=== PATIENT | male | born 2000 | race Caucasian/White ===

== ENCOUNTER 2022-01-24 11:23 | Inpatient (IN) | payer MEDICAID, SELFPAY ==
[2022-01-24 11:33] VITALS: BMI 25.0
[2022-01-24 13:48] VITALS: BP 111/74; PULSE 84; RESP 17; TEMP 36.6; O2SAT 98
[2022-01-24] MEDS: hyDROXYzine 25 mg Capsule 50 MG PO (20:19)
[2022-01-24] MEDS: trazodone 50 mg Tablet PO (21:47)
[2022-01-24 22:00] VITALS: BP 141/79; PULSE 89; RESP 20; TEMP 36.9; O2SAT 93
[2022-01-25 06:00] VITALS: BP 101/44; PULSE 43; RESP 19; TEMP 36.6; O2SAT 99
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
[2022-01-25 14:00] VITALS: BP 126/87; PULSE 78; RESP 18; TEMP 36.9; O2SAT 98
[2022-01-25] MEDS: trazodone 50 mg Tablet PO (21:09)
[2022-01-25] MEDS: hyDROXYzine 25 mg Capsule 50 MG PO (21:11)
[2022-01-25 21:38] VITALS: BP 130/68; PULSE 76; RESP 17; TEMP 37; O2SAT 98
[2022-01-26 06:00] VITALS: BP 110/50; PULSE 54; RESP 20; TEMP 36.5; O2SAT 99
[2022-01-26] MEDS: ARIPiprazole 10 mg Tablet 5 MG PO (13:03)
[2022-01-26 14:00] VITALS: BP 112/77; PULSE 68; RESP 18; TEMP 36.6; O2SAT 96
--- NOTE | 2022-01-26 16:52 | W.PM.NPUPNS ---
Subjective NPU Subjective: 21y.o. White male with Bipolar Disorder NOS who reports feeling calmer today on abilify 5mg with no side effects noted. Patient reports that he is hopeful about getting better but reports that he has had noviolent angry thoughts today and has been better at managing his ?ups and downs.? Patient reports no depressed mood today. Patient still report worry about having to care for his potential baby as he reports that his ex girlfriend was deemed to be unfit. Mental Status Exam MSE Comments: Marcos? presents as friendly, attentive, but tense. but looks unhappy. He exhibits speech that is normal in rate, volume, and articulation and is coherent and spontaneous. Language skills are intact. He appears downcast. Body posture and attitude convey an underlying depressed mood, but he reports that his mood is a little bit better. He denies having suicidal ideas.? His affect is constricted. Homicidal ideas or intentions are denied.? He was alert and oriented to person place and time, Vocabulary and fund of knowledge indicate cognitive functioning in the normal range. Insight into problems appears to be poor. Judgment appears fair. He is easily distracted.? No signs of withdrawal or intoxication are in evidence. No evidence of any abnormal involuntary motor movements or tics presented. Vitals/I&O/Wt Last Vital Signs Temp 97.9 F 01/26/22 20:22 Pulse 83 01/26/22 20:22 Resp 16 01/26/22 20:22 BP 130/89 01/26/22 20:22 Pulse Ox 98 01/26/22 20:22 A&P Assessment and plan (1) Bipolar disorder, unspecified: Status: Acute (2) Methamphetamine use disorder, severe: Status: Acute Plan Diagnoses:? The following Diagnoses are based on currently available information and may change as additional information becomes available. Bipolar Disorder NEC, 296.89 (Partial Remission) Stimulant Use Disorder, Moderate, Amphetamine type substance, 304.40, F15.20 (ICD-9) (Active) Evaluate for Autistic Spectrum Disorder:? Instructions / Recommendations / Plan: 21 year old who presents voluntarily with homicidal threats, irritability with an extended history of symptoms suggestive of bipolar disorder.? We will attempt to gather further information and previous records.? 1.? Continue current medication.? Started Abilify 5 mg p.o. every morning 2.? Continue every 15 minute checks for safety. 3.? Encourage individual, group and milieu therapies. 4.? Encourage sober living treatment after discharge at the highest level of care to which he is willing to commit. Involuntary Hold Information 96 Hour Hold: 96 Hour Involuntary Admission: No Attestations NPU Medical Necessity Statement*: Inpatient hospitalization is medically necessary and the clinically appropriate intervention at this time. We will monitor medication to make changes as indicated. Likely length of stay 2-4 days. Coding Level of Care Code Acute Workforce Investment Act Career Manager for [facility] Diagnoses Bipolar disorder, unspecified F31.9 Methamphetamine use disorder, severe F15.20
[2022-01-26 20:22] VITALS: BP 130/89; PULSE 83; RESP 16; TEMP 36.6; O2SAT 98
[2022-01-26] MEDS: hyDROXYzine 25 mg Capsule 50 MG PO (22:42)
[2022-01-26] MEDS: mupirocin oint 22 gm 1 APPLIC TOPICAL (22:43)
[2022-01-27 06:00] VITALS: BP 106/62; PULSE 67; RESP 16; TEMP 37; O2SAT 96
--- NOTE | 2022-01-27 08:27 | PC.NURSE ---
IN ROOM RESTING. COOPERATIVE WITH ASSESSMENT. DENIES SI/HI AND AVH AT THIS TIME. DENIES PAIN. FLAT AFFECT IS NOTED. PT WITHDRAWN AND NO INTERACTIVE WITH ASSESSMENT. STATES, I JUST WANT TO SLEEP. ONCE ASSESSMENT COMPLETED PT WENT BACK TO RESTING WITH EYES CLOSED. SUPPORT VOICED.
[2022-01-27] MEDS: ARIPiprazole 10 mg Tablet 5 MG PO (09:29)
[2022-01-27] MEDS: mupirocin oint 22 gm 1 APPLIC TOPICAL ×2 (09:30→20:50)
[2022-01-27 14:00] VITALS: BP 150/76; PULSE 71; RESP 16; TEMP 36.8; O2SAT 97
--- NOTE | 2022-01-27 17:13 | P.NPUPN_ITS ---
Subjective NPU Subjective: Patient presents today reporting that he is feeling fine on the medication. There are some concern regarding whether or not he was having some somnolence from the medication. We had discussed the possibility of increasing it to 10 mg, the Abilify, but agreed to leave it at 5 mg and monitor a little more. He reports he is eating and sleeping okay he denied any additional challenges. Mental Status Exam MSE Comments: Marcos? presents as friendly, attentive, but tense. but looks unhappy. He exhibits speech that is normal in rate, volume, and articulation and is coherent and spontaneous. Language skills are intact. He appears downcast. Body posture and attitude convey an underlying depressed mood, but he reports that his mood is a little better.? He denies having suicidal ideas.? His affect is constricted. Homicidal ideas or intentions are denied.? He was alert and oriented to person place and time, Vocabulary and fund of knowledge indicate cognitive functioning in the normal range. Insight into problems appears to be poor. Judgment appears fair. He is easily distracted.? No signs of withdrawal or intoxication are in evidence. No evidence of any abnormal involuntary motor movements or tics presented. Vitals/I&O/Wt Last Vital Signs Temp 98.2 F 01/27/22 14:00 Pulse 71 01/27/22 14:00 Resp 16 01/27/22 14:00 BP 150/76 01/27/22 14:00 Pulse Ox 97 01/27/22 14:00 A&P Assessment and plan (1) Bipolar disorder, unspecified: Status: Acute (2) Methamphetamine use disorder, severe: Status: Acute Plan Diagnoses:? The following Diagnoses are based on currently available information and may change as additional information becomes available. Bipolar Disorder NEC, 296.89 (Partial Remission) Stimulant Use Disorder, Moderate, Amphetamine type substance, 304.40, F15.20 (ICD-9) (Active) Evaluate for Autistic Spectrum Disorder:? Instructions / Recommendations / Plan: 21 year old who presents voluntarily with homicidal threats, irritability with an extended history of symptoms suggestive of bipolar disorder.? We will attempt to gather further information and previous records.? 1.? Continue current medication.? Started Abilify 5 mg p.o. every morning 2.? Continue every 15 minute checks for safety. 3.? Encourage individual, group and milieu therapies. 4.? Encourage sober living treatment after discharge at the highest level of care to which he is willing to commit. Involuntary Hold Information 96 Hour Hold: 96 Hour Involuntary Admission: No Attestations NPU Medical Necessity Statement*: Inpatient hospitalization is medically necessary and the clinically appropriate intervention at this time. We will monitor medication to make changes as indicated. Likely length of stay 2-4 days. Coding Level of Care Code Acute Metal Ceiling Hanger for [facility] Fwd Diagnoses Bipolar disorder, unspecified F31.9 Methamphetamine use disorder, severe F15.20
[2022-01-27 20:05] VITALS: BP 143/75; PULSE 65; RESP 18; TEMP 36.6; O2SAT 98
[2022-01-28 06:00] VITALS: BP 112/61; PULSE 76; RESP 18; TEMP 36.8; O2SAT 99
[2022-01-28] MEDS: ARIPiprazole 10 mg Tablet 5 MG PO (08:50)
[2022-01-28] MEDS: mupirocin oint 22 gm 1 APPLIC TOPICAL ×2 (09:39→22:29)
[2022-01-28] MEDS: acetaminophen 325 mg Tablet 650 MG PO (11:38)
[2022-01-28 14:00] VITALS: BP 112/61; PULSE 76; RESP 18; TEMP 36.8; O2SAT 99
--- NOTE | 2022-01-28 17:18 | P.NPUPN_ITS ---
Subjective NPU Subjective: Patient presents today reporting that he feels the medication is helping his thoughts. He reports he does not feel it makes him overly sleepy but that he often sleeps when he is bored. We discussed the risk benefits and alternatives of increasing his Abilify to 10 mg p.o. daily and he understood agreed proceed as is documented in this note. Mental Status Exam MSE Comments: Marcos? presents as friendly, attentive, but tense. but looks unhappy. He exhibits speech that is normal in rate, volume, and articulation and is coherent and spontaneous. Language skills are intact. He appears brighter. Body posture and attitude convey less depression. He reports that his mood is a bit better.? He denies having suicidal ideas.? His affect is less constricted. Homicidal ideas or intentions are denied.? He was alert and oriented to person place and time, Vocabulary and fund of knowledge indicate cognitive functioning in the normal range. Insight into problems appears to be poor. Judgment appears fair. He is easily distracted.? No signs of withdrawal or intoxication are in evidence. No evidence of any abnormal involuntary motor movements or tics presented. Vitals/I&O/Wt Last Vital Signs Temp 98.1 F 01/28/22 21:00 Pulse 63 01/28/22 21:00 Resp 18 01/28/22 21:00 BP 148/77 01/28/22 21:00 Pulse Ox 97 01/28/22 21:00 A&P Assessment and plan (1) Bipolar disorder, unspecified: Status: Acute (2) Methamphetamine use disorder, severe: Status: Acute Plan Diagnoses:? The following Diagnoses are based on currently available information and may change as additional information becomes available. Bipolar Disorder NEC, 296.89 (Partial Remission) Stimulant Use Disorder, Moderate, Amphetamine type substance, 304.40, F15.20 (ICD-9) (Active) Evaluate for Autistic Spectrum Disorder:? Instructions / Recommendations / Plan: 21 year old who presents voluntarily with homicidal threats, irritability with an extended history of symptoms suggestive of bipolar disorder.? We will attempt to gather further information and previous records.? 1.? Continue current medication.? Increase Abilify to 10 mg p.o. daily. 2.? Continue every 15 minute checks for safety. 3.? Encourage individual, group and milieu therapies. 4.? Encourage sober living treatment after discharge at the highest level of care to which he is willing to commit. Involuntary Hold Information 96 Hour Hold: 96 Hour Involuntary Admission: No Attestations NPU Medical Necessity Statement*: Inpatient hospitalization is medically necessary and the clinically appropriate intervention at this time. We will monitor medication to make changes as indicated. Likely length of stay 1-3 days. Coding Level of Care Code Acute [facility]idential [facility] Diagnoses Bipolar disorder, unspecified F31.9 Methamphetamine use disorder, severe F15.20
[2022-01-28 21:00] VITALS: BP 148/77; PULSE 63; RESP 18; TEMP 36.7; O2SAT 97
[2022-01-28] MEDS: hyDROXYzine 25 mg Capsule 50 MG PO (23:44)
[2022-01-29 06:00] VITALS: BP 117/62; PULSE 64; RESP 18; TEMP 36.6; O2SAT 99
[2022-01-29] MEDS: ARIPiprazole 10 mg Tablet 5 MG PO (08:39)
[2022-01-29] MEDS: mupirocin oint 22 gm 1 APPLIC TOPICAL (09:20)
--- NOTE | 2022-01-29 12:24 | PC.NURSE ---
NEW ORDERS RECEIVED TO DC ABILIFY 5 MG AND START ABILIFY 10 MG. ORDERS PLACED IN [facility]. PT EDUCATED.
[2022-01-29 13:29] VITALS: BP 155/77; PULSE 89; RESP 18; TEMP 36.5; O2SAT 96
[2022-01-29] MEDS: hyDROXYzine 25 mg Capsule 50 MG PO (17:35)
--- NOTE | 2022-01-29 18:28 | W.PM.NPUPNS ---
Subjective NPU Subjective: Patient presents today reporting that he is feeling a little bit better. No concerns at this time with the increase in Abilify 10 mg p.o. every morning. He reports feeling more optimistic about moving forward. He is working with the treatment team on possible discharge strategies as we look towards discharge. He reports that his thoughts are less racing in nature and he is eating and sleeping fine. Mental Status Exam MSE Comments: Marcos? presents as friendly, attentive, but tense. but looks brighter. He exhibits speech that is normal in rate, volume, and articulation and is coherent and spontaneous. Language skills are intact. He appears brighter. Body posture and attitude convey less depression though he appears to be pacing at times. He reports that his mood is a bit better.? He denies having suicidal ideas.? His affect is less constricted. Homicidal ideas or intentions are denied.? He was alert and oriented to person place and time, Vocabulary and fund of knowledge indicate cognitive functioning in the normal range. Insight into problems appears to be poor. Judgment appears fair. He is easily distracted.? No signs of withdrawal or intoxication are in evidence. No evidence of any abnormal involuntary motor movements or tics presented except for the pacing. Vitals/I&O/Wt Last Vital Signs Temp 97.7 F 01/29/22 13:29 Pulse 58 L 01/29/22 20:00 Resp 16 01/29/22 20:00 BP 140/62 01/29/22 20:00 Pulse Ox 98 01/29/22 20:00 A&P Assessment and plan (1) Bipolar disorder, unspecified: Status: Acute (2) Methamphetamine use disorder, severe: Status: Acute Plan Diagnoses:? The following Diagnoses are based on currently available information and may change as additional information becomes available. Bipolar Disorder NEC, 296.89 (Partial Remission) Stimulant Use Disorder, Moderate, Amphetamine type substance, 304.40, F15.20 (ICD-9) (Active) Evaluate for Autistic Spectrum Disorder:? Instructions / Recommendations / Plan: 21 year old who presents voluntarily with homicidal threats, irritability with an extended history of symptoms suggestive of bipolar disorder.? We will attempt to gather further information and previous records.? 1.? Continue current medication.? Increased Abilify to 10 mg p.o. daily. 2.? Continue every 15 minute checks for safety. 3.? Encourage individual, group and milieu therapies. 4.? Encourage sober living treatment after discharge at the highest level of care to which he is willing to commit. Involuntary Hold Information 96 Hour Hold: 96 Hour Involuntary Admission: No Attestations NPU Medical Necessity Statement*: Inpatient hospitalization is medically necessary and the clinically appropriate intervention at this time. We will monitor medication to make changes as indicated. Likely length of stay 1-3 days. Coding Level of Care Code Acute Medical Physics Professor for [facility] Diagnoses Bipolar disorder, unspecified F31.9 Methamphetamine use disorder, severe F15.20
[2022-01-29 20:00] VITALS: BP 140/62; PULSE 58; RESP 16; O2SAT 98
[2022-01-30 06:00] VITALS: BP 121/84; PULSE 76; RESP 17; O2SAT 97
[2022-01-30] MEDS: ARIPiprazole 10 mg Tablet PO (08:59)
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
[2022-01-30 10:49] VITALS: BP 121/84; PULSE 76; RESP 17; O2SAT 97
[2022-01-30] MEDS: hyDROXYzine 25 mg Capsule 50 MG PO (11:23)
== END 2022-01-30 12:05 | disposition home or self-care (01) | DRG 885 ==
PROVIDERS: Admitting Provider Psychiatry & Neurology Psychiatry; Visit Provider Psychiatry & Neurology Psychiatry
DX: F31.9 Bipolar disorder, unspecified (principal); F15.20 Other stimulant dependence, uncomplicated; R45.851 Suicidal ideations; F84.0 Autistic disorder; F90.9 Attention-deficit hyperactivity disorder, unspecified type; Z81.8 Family history of other mental and behavioral disorders
CPT/HCPCS: 87491; 87591; 97150; 97165; J1100; J2405; J2704; J3010

== ENCOUNTER 2022-04-27 15:48 | Emergency (ER) | payer MEDICAID, SELFPAY ==
[2022-04-27 16:03] VITALS: BP 155/83; PULSE 94; RESP 18; TEMP 36.6; O2SAT 99; BMI 26.2
--- NOTE | 2022-04-27 16:11 | W.ED.GENADLT ---
HPI - General Adult General: Chief complaint: Psychiatric Symptoms Stated complaint: ANGER/ AGGRESSION/ PSYCH EVAL Time Seen by Provider: 04/27/22 15:54 History of Present Illness: HPI: [22]yo patient w/ hx of agitation previous hallucination presenting to the emergency room for requesting for medication change. Patient takes 10 mg Abilify daily and is compliant as a medication for hallucination. Patient reports that she has had increased aggression and would like to have his Abilify adjusted. On arrival, the patient is AAOx3 and cooperative with my evaluation. No focal complaints of chest pain, shortness of breath, palpitations, N/V, focal GI/ complaints. Currently denies SI/HI. No complaints of hallucinations. Onset: acute on chronic Duration: ongoing Location: home Severity: severe Associated symptoms: Deny chest pain, dyspnea, nausea, rash, palpitations or vomiting Review of Systems Const: Denies: fever(s) or chills Eyes: Denies: change in vision ENMT: Denies: mouth pain Card: Denies: chest pain or palpitations Resp: Denies: dyspnea or non-productive cough GI: Denies: abdominal pain, nausea, vomiting or diarrhea : Denies: dysuria Musc: Denies: extremity pain Skin/Breast: Denies: rash or new lesions Neuro: Denies: weakness in extremities Psych: Reports: other (+increased aggressive behviors); Denies: suicidal ideation Daniel/Lymph: Denies: easy bruising PFS ED PFSH: Medical History Psychiatric care Social History Smoking and tobacco status: never smoked Alcohol intake: never Substance/Drug Use: never Physical Exam Const: COMMON NORMALS: alert HENMT: COMMON NORMALS: atraumatic HEAD & SCALP: atraumatic MOUTH: moist mucous membranes not abnormal Eye: COMMON NORMALS: EOMs intact bilaterally and conjunctivae normal CONJUNCTIVA: Yes conjunctivae normal Neck/C-Spine: COMMON NORMALS: full ROM and supple Resp: COMMON NORMALS: normal respiratory effort and clear to auscultation bilaterally AUSCULTATION: clear to auscultation bilaterally Cardio: COMMON NORMALS: regular rate RATE: regular rate GI: COMMON NORMALS: Soft to palpation and non-tender PALPATION: Yes Soft to palpation Extremity: COMMON NORMALS: full ROM Neuro: SENSORIUM/ORIENTATION: Yes alert MOTOR EXAM: No Abnormal motor strength present and Other motor observations present (no focal motor deficits) Psych: COMMON NORMALS: speech normal SPEECH: Yes normal speech MOOD & AFFECT: Yes euthymic mood Course Vital Signs: Vital signs: Vital Signs Temperature 97.9 F 04/27/22 16:03 Pulse Rate 94 04/27/22 16:03 Respiratory Rate 18 04/27/22 16:03 Blood Pressure 155/83 04/27/22 16:03 Pulse Oximetry 99 04/27/22 16:03 Oxygen Delivery Me thod 04/27/22 16:03 MDM - General Adult Medical Decision Making [22]yo patient w/ hx of hallucinations presenting for increased aggressiveness while on abilify 10mg. HDS, exam within normal limit Thoughts are linear and organized, and the patient has no AH/VH, or HI. Clinically the patient displays no overt toxidrome; they are well appearing, with low suspicion for toxic ingestion given history and exam. Symptoms unlikely 2/2 anemia, hypothyroidism, infection, or ICH. [5:30pm] Patient is hemodynamically stable with no acute medical complaints. Case discussed with psychiatric provider Dr. Stern at [facility] psych inpatient recommended close followup with [facility] and increasing patient's abilify from 10mg to 15mg daily. Rx abilify 15mg daily for agitation I have given patient follow up with our family service caseworker to be seen by our outpatient by [facility] for increased aggressive behavior and recent medication change. Patient aware of a call from our family service caseworker to schedule for appointment(s) and verbalizes understanding of the importance of following up. Disposition: Discharge Lab Data : 04/27/22 16:12 04/27/22 16:12 Laboratory Results WBC 7.9 10^3/uL (4.0-10.0) 04/27/22 16:12 RBC 5.09 10^6/uL (4.1-5.3) 04/27/22 16:12 Hgb 15.6 g/dL (11.7-16.6) 04/27/22 16:12 Hct 46.2 % (42.0-52.0) 04/27/22 16:12 MCV 90.8 fl (80-94) 04/27/22 16:12 MCH 30.6 pg (28.0-34.0) 04/27/22 16:12 MCHC 33.8 g/dL (30.0-36.0) 04/27/22 16:12 RDW 11.9 % (12.1-15.1) L 04/27/22 16:12 Plt Count 249 10^3/cmm (130-400) 04/27/22 16:12 MPV 9.1 fL (7.4-10.4) 04/27/22 16:12 Neut % (Auto) 52.4 % 04/27/22 16:12 Lymph % (Auto) 31.7 % 04/27/22 16:12 Lipscomb % (Auto) 6.9 % 04/27/22 16:12 Eos % (Auto) 7.6 % 04/27/22 16:12 Baso % (Auto) 1.1 % 04/27/22 16:12 Neut # (Auto) 4.12 10^3/uL (1.8-7.7) 04/27/22 16:12 Lymph # (Auto) 2.5 10^3/uL (0.8-4.8) 04/27/22 16:12 Lipscomb # (Auto) 0.5 10^3/uL (0.2-0.9) 04/27/22 16:12 Eos # (Auto) 0.6 10^3/uL (0.0-0.8) 04/27/22 16:12 Baso # (Auto) 0.1 10^3/uL (0.0-0.1) 04/27/22 16:12 Nucleated RBC % (auto) 0 % 04/27/22 16:12 Nucleated RBCs # 0.0 /100WBC 04/27/22 16:12 Sodium 139 mmol/L (136-145) 04/27/22 16:12 Potassium 4.6 mmol/L (3.5-5.1) 04/27/22 16:12 Chloride 102 mmol/L (98-107) 04/27/22 16:12 Carbon Dioxide 28 mmol/L (22-29) 04/27/22 16:12 Anion Gap 13.6 (5-19) 04/27/22 16:12 BUN 13 mg/dL (6-20) 04/27/22 16:12 Creatinine 0.9 mg/dL (0.7-1.2) 04/27/22 16:12 GFR Calculation 104.6 mL/min (90-130) 04/27/22 16:12 Glucose 90 mg/dL (65-115) 04/27/22 16:12 Calculated Osmolality 288 mOsm/kg (285-295) 04/27/22 16:12 Calcium 9.7 mg/dL (8.5-10.5) 04/27/22 16:12 Total Bilirubin 0.7 mg/dL (0.15-1.2) 04/27/22 16:12 AST 16 U/L (0-40) 04/27/22 16:12 ALT 13 U/L (0-41) 04/27/22 16:12 Alkaline Phosphatase 98 U/L (40-130) 04/27/22 16:12 Total Protein 7.0 g/dL (6.6-8.7) 04/27/22 16:12 Albumin 4.1 g/dL (3.5-5.2) 04/27/22 16:12 Globulin 2.9 g/dL (1.3-4.6) 04/27/22 16:12 Lipase 18 U/L (13-60) 04/27/22 16:12 Salicylates < 0.3 mg/dL (3-10) L 04/27/22 16:12 Urine Opiates Screen Negative ng/mL (Negative) 04/27/22 16:18 Acetaminophen < 5.0 ug/mL (10-30) L 04/27/22 16:12 Ur Barbiturates Screen Negative ng/mL (Negative) 04/27/22 16:18 Ur Phencyclidine Scrn Negative ng/mL (Negative) 04/27/22 16:18 Ur Amphetamines Screen Negative ng/mL (Negative) 04/27/22 16:18 U Benzodiazepines Scrn Negative ng/mL (Negative) 04/27/22 16:18 Urine Cocaine Screen Negative ng/mL (Negative) 04/27/22 16:18 U Marijuana (THC) Screen Positive ng/mL (Negative) H 04/27/22 16:18 Discharge Plan Discharge Patient Disposition: Home Clinical Impression: Aggressive behavior Condition: Stable Prescriptions: New aripiprazole 15 mg tablet 15 mg PO DAILY 30 Days Qty: 30 0RF Discontinued aripiprazole 10 mg Tablet 10 mg PO DAILY 30 Days Qty: 30 1RF Discharge Orders: Discharge ED (Routine); Ordered 04/27/22 Ordered By: Tran Tracy Discharge Diet: Advance as tolerated Discharge Activity: Increase activity as tolerated Activity Restrictions/Additional Instructions: Please come back to the emergency room if you need help, have any hallucinations, or you have any depression or have thoughts about hurting yourself or other people. Our family service caseworker will have you [facility] with [facility] in the next few days. You would be expected to have a phone call with our family service caseworker who will put you on the schedule. You can expect a call from us in the next 2-3 days. If you don't hear from us, call us back in the emergency room at [phone]. Coding Level of Care Code ED Gas Load Dispatcher for Jerry Fwd Exam Comprehensive
[2022-04-27 16:29] LABS: Basophils # 0.1 10^3/uL (0.0-0.1); Basophils % 1.1 %; Eosinophils # 0.6 10^3/uL (0.0-0.8); Eosinophils % 7.6 %; Hematocrit 46.2 % (42.0-52.0); Hemoglobin 15.6 g/dL (11.7-16.6); Lymphocytes # 2.5 10^3/uL (0.8-4.8); Lymphocytes % 31.7 %; Mean Corpuscular HGB Conc 33.8 g/dL (30.0-36.0); Mean Corpuscular Hemoglobin 30.6 pg (28.0-34.0); Mean Corpuscular Volume 90.8 fl (80-94); Mean Platelet Volume 9.1 fL (7.4-10.4); Monocytes # 0.5 10^3/uL (0.2-0.9); Monocytes % 6.9 %; Neutrophils # 4.12 10^3/uL (1.8-7.7); Neutrophils % 52.4 %; Nucleated Red Blood Cells % 0 %; Platelet Count 249 10^3/cmm (130-400); Red Blood Count 5.09 10^6/uL (4.1-5.3); Red Cell Distribution Width 11.9 % (12.1-15.1); White Blood Count 7.9 10^3/uL (4.0-10.0)
[2022-04-27 16:54] LABS: Amphetamines Screen Urine Negative (Negative); Barbiturates Screen Urine Negative (Negative); Benzodiazepines Screen Urine Negative (Negative); Cocaine Screen Urine Negative (Negative); Opiate Screen Urine Negative (Negative); PCP Screen Urine Negative (Negative); THC Screen Urine Positive (Negative)
[2022-04-27 17:16] LABS: Alanine Aminotransferase 13 U/L (0-41); Albumin Level 4.1 g/dL (3.5-5.2); Alkaline Phosphatase 98 U/L (40-130); Anion Gap 13.6 (5-19); Aspartate Amino Transferase 16 U/L (0-40); Blood Urea Nitrogen 13 mg/dL (6-20); Calcium 9.7 mg/dL (8.5-10.5); Carbon Dioxide 28 mmol/L (22-29); Chloride 102 mmol/L (98-107); Globulin 2.9 g/dL (1.3-4.6); Glomerular Filtration Rate 104.6 mL/min (90-130); Glucose 90 mg/dL (65-115); Lipase 18 U/L (13-60); Osmolality Calculated 288 mOsm/kg (285-295); Potassium 4.6 mmol/L (3.5-5.1); Sodium 139 mmol/L (136-145); Total Bilirubin 0.7 mg/dL (0.15-1.2)
[2022-04-27 17:22] LABS: Acetaminophen < 5.0 ug/mL (10-30); Salicylate < 0.3 mg/dL (3-10)
[2022-04-27 17:49] VITALS: BP 152/74; PULSE 84
--- NOTE | 2022-04-28 09:23 | DCPLANNER ---
Addendum entered by Tara Jewell 07/30/22 13:57: Patient had a follow up appointment scheduled with [facility] - patient did not attend appointment. Addendum entered by Tara Jewell 05/04/22 05:38: Patient has a follow up appointment scheduled for , May 06, 2022 at 8:30 at [facility]. Clinic will call patient with appointment information. Original Note: passenger service manager had message to schedule a follow up appointment for patient with [facility]. passenger service manager sent patients information to [place], inventory coordinator at [facility]. Patients information will be printed and reviewed. Clinic will call patient with appointment information.
== END 2022-04-27 17:50 | disposition home or self-care (01) ==
PROVIDERS: Emergency Provider Emergency Medicine
DX: R45.6 Violent behavior (principal)
CPT/HCPCS: 80053; 80306; 80307; 83690; 85025; 99285